=== PATIENT | female | born 1980 | race Caucasian/White ===

== ENCOUNTER 2020-06-24 10:45 | Outpatient (CLI) | payer BC, SELFPAY ==
--- NOTE | 2020-06-24 11:01 | FL_ITS ---
WS: [id number] ESOPHAGRAM TECHNIQUE: Double contrast examination was performed with thin and thick barium. Upright and BRITT imag es were obtained. CLINICAL INFORMATION: DYSPHAGIA COMPARISON: None. FINDINGS: Swallowing: Normal oropharyngeal phase. No evidence of aspiration or penetration. Esophagus: Moderate esophageal dysmotility with delayed emptying on the upright and supine imaging. N o stricture or obstructing mass. Evidence of reflux esophagitis distal esophagus. Delayed transit of the barium tablet at the GE junction which passed after additional ingestion of fl uid. Gastroesophageal reflux: Mild esophageal reflux into the mid and distal esophagus worse in the supine imaging. Fluoroscopy time: 3.3 minutes. FL/FL barium swallow [id number] IMPRESSION: 1. No evidence of aspiration or penetration. 2. Moderate esophageal dysmotility with delayed emptying on the upright and saucedo pine imaging. No stricture or mass. 3. Barium tablet demonstrates delayed transit at the GE junction which passed after 2 to 3 minutes and additional administration fluid. 4. Mild esophageal reflux into the mid and distal esophagus worse in the supin e imaging. No significant hiatal hernia. 5. Evidence of reflux esophagitis distal esophagus.
== END 2020-06-24 10:46 | disposition home or self-care (01) ==
LOC: RAD 10:53
PROVIDERS: PCP Family Medicine; Visit Provider Specialist
DX: R13.10 Dysphagia, unspecified (principal); K21.9 Gastro-esophageal reflux disease without esophagitis
CPT/HCPCS: 74220

== ENCOUNTER 2021-05-04 13:27 | Outpatient (CLI) | payer OTHER, SELFPAY ==
--- NOTE | 2021-05-04 13:36 | XRR_ITS ---
PROCEDURE INFORMATION: Exam: XR Chest Exam date and time: 05/04/2021 1:36 PM Age: 41 years old Clinical indication: Dyspnea TECHNIQUE: Imaging protocol: XR of the chest. Views: 2 views. COMPARISON: No relevant prior studies available. FINDINGS: Lungs: Unremarkable. No consolidation. Pleural spaces: Unremarkable. No pleural effusion. No pneumothorax. Heart/Mediastinum: Unremarkable. No cardiomegaly. Bones/joints: Unremarkable. XR/XR chest 2V* [id number] IMPRESSION: No acute findings.
== END 2021-05-04 13:28 | disposition home or self-care (01) ==
LOC: RAD 13:35
PROVIDERS: PCP Family Medicine; Visit Provider Family Medicine
DX: R06.00 Dyspnea, unspecified (principal)
CPT/HCPCS: 71046

== ENCOUNTER 2022-01-25 13:30 | Outpatient (CLI) | payer MEDICAID, SELFPAY ==
[2022-01-27 16:26] LABS: Previous Pap 2016
== END 2022-01-25 13:31 | disposition home or self-care (01) ==
LOC: LAB 13:37
PROVIDERS: PCP Family Medicine; Visit Provider Family Medicine
DX: Z00.00 Encounter for general adult medical examination without abnormal findings (principal)
CPT/HCPCS: 88175

== ENCOUNTER → 2022-01-30 08:45 | Outpatient (BNVA) | payer MEDICAID, SELFPAY | PROVIDERS: PCP Family Medicine; Visit Provider Family Medicine | DX: Z00.00 Encounter for general adult medical examination without abnormal findings (principal) | CPT/HCPCS: 80053; 80061; 84443 ==

== ENCOUNTER → 2023-09-01 11:26 | Outpatient (BNVA) | payer MEDICAID, SELFPAY | PROVIDERS: PCP Family Medicine; Visit Provider Emergency Medicine | DX: J02.9 Acute pharyngitis, unspecified (principal) | CPT/HCPCS: 87071; 87880 ==

== ENCOUNTER → 2023-11-04 15:23 | Outpatient (BNVA) | payer MEDICAID, SELFPAY | PROVIDERS: PCP Family Medicine; Visit Provider Family Medicine | DX: R07.9 Chest pain, unspecified (principal); F41.9 Anxiety disorder, unspecified | CPT/HCPCS: 80053; 80061; 84443 ==

== ENCOUNTER → 2024-11-23 12:25 | Outpatient (BNVA) | payer MEDICAID, SELFPAY | PROVIDERS: PCP Family Medicine; Visit Provider Family Medicine | DX: M79.10 Myalgia, unspecified site (principal) | CPT/HCPCS: 80053; 80061; 83735; 84443 ==

== ENCOUNTER → 2025-07-13 09:20 | Outpatient (BNVA) | payer MEDICAID, SELFPAY | PROVIDERS: PCP Family Medicine; Visit Provider Family Medicine | DX: F41.9 Anxiety disorder, unspecified (principal); E78.5 Hyperlipidemia, unspecified; R00.2 Palpitations | CPT/HCPCS: 80053; 80061; 83036 ==